=== PATIENT | male | born 1965 | race Caucasian/White ===

== ENCOUNTER 2017-10-27 10:44 | Emergency (ER) | payer OTHER, MEDICAID ==
[2017-10-27] MEDS: HYDROCODONE/APAP (5/325) TAB PO (11:22)
[2017-10-27] MEDS: DEXAMETHASONE 10 MG/ML 1 ML INJ IM (11:23)
[2017-10-27] MEDS: DIPHENHYDRAMINE 50 MG INJ IM (11:26)
== END 2017-10-27 11:57 | disposition home or self-care (01) ==
LOC: FTE 10:44
DX: R21 Rash and other nonspecific skin eruption (principal)
CPT/HCPCS: 96372; 99284-25

== ENCOUNTER 2017-11-03 11:48 | Emergency (ER) | payer OTHER, MEDICAID ==
[2017-11-03] MEDS: SOD CHLORIDE 0.9% 1,000 ML IV (12:25)
[2017-11-03 12:37] LABS: ADD MAN DIFF? NO
[2017-11-03 12:40] LABS: WHITE BLOOD COUNT 6.1 10^3/ul (4.8-10.8)
[2017-11-03 12:40] LABS: BASOPHILS % 0.3 % (0.0-2.0); EOSINOPHILS # 1.3 10^3/ul (0.0-0.5); EOSINOPHILS % 22.1 % (0.0-7.0); HEMATOCRIT 36.2 % (42.0-52.0); HEMOGLOBIN 11.8 g/dl (14.0-18.0); LYMPHOCYTES # 1.1 10^3/ul (0.8-2.9); LYMPHOCYTES % 18.3 % (15.0-51.0); MEAN CORPUSCULAR HEMOGLOBIN 29.6 pg (29.0-33.0); MEAN CORPUSCULAR HGB CONC 32.6 g/dl (32.0-37.0); MEAN CORPUSCULAR VOLUME 90.7 fl (82.0-101.0); MEAN PLATELET VOLUME 9.7 fl (7.4-10.4); MONOCYTE # 0.6 10^3/ul (0.3-0.9); MONOCYTES % 10.1 % (0.0-11.0); NEUTROPHILS % 48.9 % (39.0-77.0); PLATELET COUNT 321 10^3/UL (140-415); RED BLOOD COUNT 3.99 10^6/ul (4.70-6.10); RED CELL DISTRIBUTION WIDTH 15.1 % (11.5-14.5)
[2017-11-03] MEDS: DIPHENHYDRAMINE 50 MG CAP PO (12:55)
[2017-11-03 12:57] LABS: ANION GAP 12 (8-16); BLOOD UREA NITROGEN 11 mg/dl (7-20); CALCIUM 8.3 mg/dl (8.4-10.2); CARBON DIOXIDE 26 mmol/L (21-31); CHLORIDE 105 mmol/L (97-110); CREATININE 1.34 mg/dl (0.61-1.24); GLUCOSE 161 mg/dl (70-220); POTASSIUM 3.4 mmol/L (3.5-5.1); SODIUM 140 mmol/L (135-144)
[2017-11-03] MEDS: SOD CHLORIDE 0.9% 100 ML (12:59)
[2017-11-03] MEDS: IOHEXOL 300MG/ML 150 ML BTL (12:59)
[2017-11-03 13:02] LABS: INR 1.28; PROTIME 16.2 Sec (11.9-14.9); PT RATIO 1.3
[2017-11-03 13:03] LABS: PARTIAL THROMBOPLASTIN TIME 29.7 Sec (25.0-35.0)
[2017-11-03 13:09] LABS: TROPONIN-I < 0.010 ng/ml (0.000-0.120)
[2017-11-03 13:43] LABS: BAND NEUTROPHILS #M 0.1 10^3/ul (0.0-0.6); BAND NEUTROPHILS % (M) 3 % (0-4); EOSINOPHILS % (M) 26 % (0-7); LYMPHOCYTES #M 1.1 10^3/ul (0.8-2.9); LYMPHOCYTES % (M) 19 % (15-51); MONOCYTE #M 0.1 10^3/ul (0.3-0.9); MONOCYTES % (M) 2 % (0-11); MYELOCYTES % (M) 1 % (0-0); PLATELET ESTIMATE NORMAL; POLYCHROMASIA 2+ (0-0); REACTIVE LYMPHOCYTES #M 0.1 10^3/ul (0.0-0.0); REACTIVE LYMPHOCYTES% (M) 3 % (0-0); SEG NEUT #M 2.8 10^3/ul (1.6-7.5); SEGMENTED NEUTROPHILS (M) % 46 % (39-77); SMUDGE%M 5 % (0-0)
[2017-11-03] MEDS: HYDROCODONE/APAP (10/325) TAB PO (14:05)
== END 2017-11-03 14:59 | disposition home or self-care (01) ==
LOC: E/R 14:59
DX: R07.89 Other chest pain (principal); R59.1 Generalized enlarged lymph nodes; N28.9 Disorder of kidney and ureter, unspecified; B20 Human immunodeficiency virus [HIV] disease; Z87.891 Personal history of nicotine dependence
CPT/HCPCS: 36415; 71045; 71275; 80048; 84484; 85025; 85610; 85730; 93005; 99285-25